=== PATIENT | female | born 1955 | race Caucasian/White ===

== ENCOUNTER 2021-05-12 23:09 | Day surgery (SDCO) | payer OTHER ==
[~2021-05-12] VITALS: Ht 154.9 cm; Wt 65.1 kg
[2021-05-12 23:38] LABS: BASOPHIL 0.2 % (0-2); EOSINOPHIL 0.3 % (0-7); HCT 44.6 % (37.0-47.0); HGB 14.5 g/dl (12.5-16.0); MCH 30.7 pg (25.0-31.0); MCHC 32.5 g/dL (32.0-36.0); MCV 94.3 fL (78.0-100.0); MONOCYTE 4.2 % (0-12); MPV 10.3 fL (6.0-9.5); NRBC 0; PLT 183 K/uL (150-400); RBC 4.73 M/uL (4.20-5.40); RDW 12.9 % (11.5-14.0); WBC 9.1 K/uL (4.0-10.5)
[2021-05-12 23:46] LABS: ALBUMIN 3.9 g/dL (3.4-5.0); BUN/CREAT RATIO (CALC) 21.1 RATIO; CREATININE 1.14 mg/dL (0.51-0.95); GLOBULIN (CALCULATION) 3.1 g/dL; POTASSIUM 3.9 mmol/L (3.5-5.1)
[2021-05-13 00:44] LABS: INR 1.04 (0.9-1.2); PTT 30.9 SECONDS (24.4-34.7)
[2021-05-13] MEDS ORDERED: CRESTOR10 MG PO (03:49)
[2021-05-13] MEDS ORDERED: CELEXA20 MG PO (03:49)
[2021-05-13] MEDS ORDERED: VALSARTAN-HCTZ1 EAC3 PO (03:50)
[2021-05-13] MEDS ORDERED: ONE-DAILY MULT1 EACH PO (03:51)
[2021-05-13] MEDS ORDERED: TIZANIDINE HCL4 M1 PO (03:51)
[2021-05-13] MEDS ORDERED: VITAMIN B12-FO1 EACH PO (03:52)
[2021-05-13 03:53] LABS: BILIRUBIN NEGATIVE (NEGATIVE); BLOOD NEGATIVE Ery/uL (NEGATIVE); CLARITY CLEAR (CLEAR); COLOR YELLOW (YELLOW); GLUCOSE (U) NORMAL (NORMAL); LEUKOCYTES NEGATIVE Leu/uL (NEGATIVE); NITRITE NEGATIVE (NEGATIVE); PROTEIN NEGATIVE (NEGATIVE); UROBILINOGEN 0.2 mg/dL (0.2-1.0)
--- NOTE | 2021-05-13 15:54 | NUR ---
05/13/21 Ms. Hernandez lives at home with her spouse. She was independent in the home and community prior to admission. No discharge planning needs are anticipated.
[2021-05-14 05:45] LABS: BASOPHIL 0.3 % (0-2); EOSINOPHIL 0.6 % (0-7); HCT 37.7 % (37.0-47.0); LYMPHOCYTE 20.2 % (15-48); MCH 30.5 pg (25.0-31.0); MCHC 31.8 g/dL (32.0-36.0); MCV 95.7 fL (78.0-100.0); MONOCYTE 8.8 % (0-12); MPV 10.3 fL (6.0-9.5); NEUTROPHIL 69.8 % (41-80); NRBC 0; PLT 133 K/uL (150-400); RBC 3.94 M/uL (4.20-5.40); RDW 13.1 % (11.5-14.0); WBC 3.4 K/uL (4.0-10.5)
[2021-05-14 06:12] LABS: BUN/CREAT RATIO (CALC) 9.3 RATIO; CREATININE 0.97 mg/dL (0.51-0.95); POTASSIUM 3.4 mmol/L (3.5-5.1)
[2021-05-14] MEDS ORDERED: ZOFRAN4 M1 PO (14:27)
[2021-05-14] MEDS ORDERED: NORCO 5-325 TA1 EACH PO (14:27)
[2021-05-14] MEDS ORDERED: LEVAQUIN500 MG PO (14:27)
== END 2021-05-14 15:12 | disposition home or self-care (01) ==
LOC: FER 23:09 → FMS 05-13 03:02
PROVIDERS: Allergy & Immunology Allergy; Emergency Medicine; ADMIT Internal Medicine
DX: K52.9 Noninfective gastroenteritis and colitis, unspecified (principal); K21.9 Gastro-esophageal reflux disease without esophagitis; I10 Essential (primary) hypertension; G89.29 Other chronic pain; M54.9 Dorsalgia, unspecified; M54.2 Cervicalgia; Z90.49 Acquired absence of other specified parts of digestive tract; N17.9 Acute kidney failure, unspecified; E87.2 Acidosis; E86.0 Dehydration; Z20.822 Contact with and (suspected) exposure to COVID-19; R94.31 Abnormal electrocardiogram [ECG] [EKG]; J98.11 Atelectasis; K76.89 Other specified diseases of liver
CPT/HCPCS: 36415; 80048; 80053; 81003; 82150; 83605; 83690; 84145; 84484; 85025; 85610; 85730; 87045; 87046; 87205; 87449; 93005; 94010; C9113; G0378; J1170; J1650; J2270; J2405; J2543; J2550; J7030; J7040; J7120; Q9967; U0002